=== PATIENT | female | born 1980 ===

== ENCOUNTER 2017-12-09 15:44 | Emergency (ER) | payer MEDICAID ==
[2017-12-09 15:55] VITALS: BP 122/80; PULSE 80; RESP 19; TEMP 97.7; O2SAT 99
--- NOTE | 2017-12-09 16:32 | ED PDOC ---
HPI: Female Pain Time Seen by Provider: 12/09/17 16:09 Chief Complaint (Nursing): Female Genitourinary Chief Complaint (Provider): Urgency, dysuria History Per: Patient History/Exam Limitations: no limitations Onset/Duration Of Symptoms: Days (x1) Current Symptoms Are (Timing): Still Present Quality Of Discomfort: Burning Associated Symptoms: Back Pain (mild right lower), Urinary Symptoms (dysuria, urgency). denies: Fever, Chills Additional Complaint(s): Carolyn Costello is a 37 year old female, with no significant past medical history, who presents to the emergency department complaining of frequency and dysuria ongoing since yesterday. Patient describes it as a burning sensation and reports noticing blood clots when urinating. She is also complaining of a mild right sided lower back pain. She did not take any medication for pain. She denies any fever, chills or other medical complaints. PMD: Phan Pederson Past Medical History Reviewed: Historical Data, Nursing Documentation, Vital Signs Vital Signs: Last Vital Signs Temp 97.7 F 12/09/17 15:50 Pulse 80 12/09/17 15:50 Resp 19 12/09/17 15:50 BP 122/80 12/09/17 15:50 Pulse Ox 99 12/09/17 15:50 - Medical History PMH: Bronchitis - Surgical History Surgical History: - Family History Family History: States: Unknown Family Hx - Home Medications Home Medications: Ambulatory Orders Medication Instructions Recorded Albuterol HFA [Ventolin HFA 90 2 puff IH [id number] PRN #1 bottle 07/28/15 mcg/actuation (8 g)] Azithromycin [Zithromax] 250 mg PO DAILY #4 tab 07/28/15 - Allergies Allergies/Adverse Reactions: Allergies Allergy/AdvReac Type Severity Reaction Status Date / Time shellfish derived Allergy SWELLING Verified 07/28/15 10:05 Review of Systems ROS Statement: Except As Marked, All Systems Reviewed And Found Negative Constitutional: Negative for: Fever, Chills Genitourinary Female: Positive for: Dysuria, Frequency, Hematuria Musculoskeletal: Positive for: Back Pain (mild right lower) Physical Exam - Reviewed Nursing Documentation Reviewed: Yes Vital Signs Reviewed: Yes - Physical Exam Appears: Positive for: No Acute Distress Head Exam: Positive for: ATRAUMATIC, NORMOCEPHALIC Skin: Positive for: Normal Color, Warm, Dry Eye Exam: Positive for: Normal appearance, EOMI, PERRL Neck: Positive for: Painless ROM Cardiovascular/Chest: Positive for: Regular Rate, Rhythm. Negative for: Murmur Respiratory: Positive for: Normal Breath Sounds. Negative for: Respiratory Distress Gastrointestinal/Abdominal: Positive for: Normal Exam, Soft. Negative for: Tenderness, Guarding, Rebound Back: Positive for: Normal Inspection. Negative for: L CVA Tenderness, R CVA Tenderness Extremity: Positive for: Normal ROM (upper and lower extremities). Negative for: Deformity, Swelling Neurologic/Psych: Positive for: Alert, Oriented, Gait (steady) - ECG O2 Sat by Pulse Oximetry: 99 (RA) Pulse Ox Interpretation: Normal Medical Decision Making Medical Decision Making: Time: 16:09 Initial Impression: UTI Initial Plan: --Urine --Urine dipstick --Reevaluation Scribe Attestation: Documented by Dimas Sun, acting as a scribe for Brittani Marin MD. Provider Scribe Attestation: All medical record entries made by the Scribe were at my direction and personally dictated by me. I have reviewed the chart and agree that the record accurately reflects my personal performance of the history, physical exam, medical decision making, and the department course for this patient. I have also personally directed, reviewed, and agree with the discharge instructions and disposition. Disposition - Disposition
[2017-12-09 17:38] LABS: SQUAMOUS EPITHIAL 9 /hpf (0-5); URINE BACTERIA RARE (<OCC); URINE BILIRUBIN NEGATIVE (NEGATIVE); URINE BLOOD MODERATE (NEGATIVE); URINE CLARITY CLOUDY (Clear); URINE COLOR YELLOW (YELLOW); URINE GLUCOSE (UA) NEG (Normal); URINE LEUKOCYTE ESTERASE SMALL Leu/uL (Negative); URINE PROTEIN NEGATIVE (NEGATIVE); URINE UROBILINOGEN 0.2-1.0 mg/dL (0.2-1.0)
== END 2017-12-09 18:14 | disposition home or self-care (01) ==
LOC: H.ER 15:44
DX: N39.0 Urinary tract infection, site not specified (principal)